=== PATIENT | male | born 1985 | race Caucasian/White ===

== ENCOUNTER 2016-10-18 15:14 | Observation (INO) | payer OTHER ==
[2016-10-18] MEDS ORDERED: BENADRYL 50 MG/ML IV ONE (15:24)
[2016-10-18] MEDS ORDERED: Sodium Chloride 0.9% 1000 ML 1,000 ML IV STA (15:24)
[2016-10-18] MEDS ORDERED: Adacel Vial IM ONE ×2 (15:29→15:36)
[2016-10-18] MEDS ORDERED: BENADRYL 50 MG/ML ONE (15:33)
[2016-10-18] MEDS ORDERED: Sodium Chloride 0.9% 1000 ML 1,000 ML ONE (15:33)
[2016-10-18] MEDS ORDERED: XYLOCAINE 1%/Epi 1:100000 MDV 20 ML IJ ONE (15:34)
[2016-10-18 15:35] LABS: VBG BASE EXCESS 1.6 (-2.0-2.0); VBG CARBOXYHEMOGLOBIN 8.6 % T HGB (0.0-6.9); VBG HCO3- 27.2 meq/L (22-28); VBG HEMOGLOBIN 16.8; VBG POTASSIUM 3.8 (3.5-5.1); VBG pH 7.39 (7.32-7.42)
[2016-10-18 15:37] LABS: BASOPHIL % 0.5 % (0.0-0.4); Eosinophil % 2.9 % (0.00-5.0); Granulocytes % 42.8 % (36.0-66.0); Lymphocytes % 34.3 % (24.0-44.0); Mean Cell Volume 97.4 fl (78-100); Mean Corpuscular Hemoglobin 34.1 pg (26-32); Mean Platelet Volume 10.4 fl (6-9.5); Monocytes % 19.5 % (0.0-12.0); Platelet Count 203 K/mm3 (150-450); Red Blood Count 4.95 M/mm3 (4.1-5.6); Red Cell Distribution Width 12.4 % (11.5-14.0); White Blood Count 7.6 K/mm3 (4.0-10.5)
[2016-10-18] MEDS ORDERED: XYLOCAINE 1%/Epi 1:100000 MDV 20 ML ONE (15:39)
--- NOTE | 2016-10-18 15:42 | ERPHSYRPT ---
- History of Present Illness Time Seen by Provider: 10/18/16 15:24 Source: patient, other (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 He went to [facility] today for sore throat. He had negative strep test. Because his kids had positive strep he was given bicillin shot. No problems. While standing at the desk waiting on a work slip he fell over backwards. Struck head on hard surface. Never fully unconscious. No seizure noted. He did not remember the events and has some amnesia. He was shaking. He has some neck pain. He has a wound on the back of the head. He is unsure of last tetanus vaccine. No vomiting. Timing/Duration: today Severity: moderate Allergies/Adverse Reactions: No Known Drug Allergies Allergy (Verified 10/18/16 15:30) Home Medications: No Home Meds 1 [facility] UD 01/21/15 [History] Hx Tetanus, Diphtheria Vaccination/Date Given: Yes Hx Influenza Vaccination/Date Given: No Hx Pneumococcal Vaccination/Date Given: No Immunizations Up to Date: Yes - Review of Systems Constitutional: No Fever, No Chills Eyes: No Symptoms Ears, Nose, & Throat: Throat Pain Respiratory: No Cough, No Dyspnea Cardiac: Syncope, No Chest Pain, No Edema, No Palpitations Abdominal/Gastrointestinal: No Abdominal Pain, No Nausea, No Vomiting, No Diarrhea Genitourinary Symptoms: No Dysuria Musculoskeletal: Neck Pain, Fall, Injury, No Back Pain Skin: Skin Lesions (laceration) Neurological: No Focal Weakness, No Headache, No Parasthesia All Other Systems: Reviewed and Negative - Past Medical History Pertinent Past Medical History: No Neurological History: No Pertinent History ENT History: No Pertinent History Cardiac History: No Pertinent History Respiratory History: No Pertinent History Endocrine Medical History: No Pertinent History Musculoskeletal History: Degenerative Disk Disease GI Medical History: No Pertinent History, Hernia History: No Pertinent History Psycho-Social History: Depression Male Reproductive Disorders: No Pertinent History - Past Surgical History Past Surgical History: Yes Neuro Surgical History: No Pertinent History Cardiac: No Pertinent History Respiratory: No Pertinent History Gastrointestinal: Appendectomy, Hernia Repair Genitourinary: No Pertinent History Musculoskeletal: No Pertinent History Male Surgical History: No Pertinent History Other Surgical History: TONSILECTOMY - Social History Smoking Status: Current every day smoker How long have you smoked: 10 Exposure to second hand smoke: Yes Alcohol Use: Socially Drug Use: none Patient Lives Alone: No Significant Family History: no pertinent family hx - Nursing Vital Signs Nursing Vital Signs: Initial Vital Signs Temperature 99.9 F Temperature Source Oral Pulse Rate 90 Respiratory Rate 22 Blood Pressure [] 125/72 Pain Intensity 4 - Physical Exam General Appearance: alert Eye Exam: PERRL/EOMI Ears, Nose, Throat Exam: normal ENT inspection, moist mucous membranes Neck Exam: normal inspection, midline tenderness (so collar applied) Respiratory Exam: normal breath sounds, lungs clear, No respiratory distress Cardiovascular Exam: regular rate/rhythm, No murmur Gastrointestinal/Abdomen Exam: soft, No tenderness, No distention Male Genitalia Exam: normal genitalia Back Exam: normal inspection, No vertebral tenderness Extremity Exam: normal inspection, normal range of motion Neurologic Exam: alert, cooperative, sensation nml, other (amnestic to events and some memory loss with repeated questions), No motor deficits Skin Exam: warm, dry, laceration (posterior scalp) SpO2 Interpretation: normal SpO2: 100 Oxygen Delivery: Room Air Procedures - Laceration/Wound Repair scalp Wound Length (cm): 5 Wound's Depth, Shape: irregular, stellate Wound Explored: no foreign body noted Irrigated: Yes Hibiclens Prep: Yes Anesthesia: local, 1% lidocaine w/ Epi Volume Anesthetic (ccs): 5 Wound Repaired With: Thania (#8) - Course Nursing assessment & vital signs reviewed: Yes EKG Interpreted by Me: RATE (90), Sinus Rhythm, NORMAL AXIS, NORMAL INTERVALS ( QTc 414), NORMAL QRS, NORMAL ST-T - Radiology Ultrasound Exam head/cervical Ultrasound: tele radiology report, negative Ordered Tests: Active Orders 24 hr Category Date Time Status Accucheck STAT Care 10/18/16 15:28 Active Grinder Watch Parts STAT Care 10/18/16 15:25 Active Cervical Collar Application STAT Care 10/18/16 18:17 Active Clean Catch Urine Specimen STAT Care 10/18/16 15:24 Active EKG-ER Only STAT Care 10/18/16 15:24 Active IV Insertion STAT Care 10/18/16 15:24 Active NPO (ED) STAT Care 10/18/16 15:24 Active Wound Care STAT Care 10/18/16 15:34 Active CERVICAL SPINE WO CONTRAST [CT] Stat Exams 10/18/16 15:26 Completed HEAD WITHOUT CONTRAST [CT] Stat Exams 10/18/16 15:26 Completed CBC W DIFF Stat Lab 10/18/16 15:25 Completed CMP Stat Lab 10/18/16 15:25 Completed Ethyl Alcohol,Urine Stat Lab 10/18/16 17:40 Completed UA Stat Lab 10/18/16 17:40 Completed Urine Triage Profile Stat Lab 10/18/16 17:40 Completed VENOUS BLOOD GAS Urgent Lab 10/18/16 15:32 Completed Medication Summary Discontinued Medications Generic Name Dose Route Start Last Admin Trade Name Freq PRN Reason Stop Dose Admin Diphenhydramine HCl 25 mg 10/18/16 15:24 10/18/16 15:37 Benadryl 50 Mg/Ml IV 10/18/16 15:25 25 mg STAT ONE Administration Diphenhydramine HCl Confirm 10/18/16 15:33 Benadryl 50 Mg/Ml Administered 10/18/16 15:34 Dose 50 mg .ROUTE .STK-MED ONE Diphtheria/Tetanus/Acell Pertussis 0.5 ml 10/18/16 15:29 10/18/16 15:37 Adacel Vial IM 10/18/16 15:30 0.5 ml .ONCE ONE Administration Diphtheria/Tetanus/Acell Pertussis Confirm 10/18/16 15:36 Adacel Vial Administered 10/18/16 15:37 Dose 0.5 ml IM .STK-MED ONE Sodium Chloride 1,000 mls @ 999 mls/hr 10/18/16 15:24 10/18/16 15:37 Sodium Chloride 0.9% 1000 Ml IV 10/18/16 16:24 999 mls/hr .Q1H1M STA Administration Sodium Chloride Confirm 10/18/16 15:33 Sodium Chloride 0.9% 1000 Ml Administered 10/18/16 15:34 Dose 1,000 mls @ ud .ROUTE .STK-MED ONE Lidocaine/Epinephrine 5 ml 10/18/16 15:34 02/21/17 15:40 Xylocaine 1%/Epi 1:[id number] Mdv 20 Ml IJ 10/18/16 15:35 5 ml STAT ONE Administration Lidocaine/Epinephrine Confirm 10/18/16 15:39 Xylocaine 1%/Epi 1:907059 Mdv 20 Ml Administered 10/18/16 15:40 Dose 1 ml .ROUTE .STK-MED ONE Lab/Rad Data: Laboratory Result Diagrams 10/18/16 15:25 10/18/16 15:25 Laboratory Results 10/18/16 10/18/16 10/18/16 Range/Units 17:40 17:40 17:40 WBC (4.0-10.5) K/mm3 RBC (4.1-5.6) M/mm3 Hgb (12.5-18.0) gm/dl Hct (42-50) % MCV (78-100) fl MCH (26-32) pg MCHC (32-36) g/dl RDW (11.5-14.0) % Plt Count (150-450) K/mm3 MPV (6-9.5) fl Gran % (36.0-66.0) % Lymphocytes % (24.0-44.0) % Monocytes % (0.0-12.0) % Eosinophils % (0.00-5.0) % Basophils % (0.0-0.4) % Basophils # (0-0.4) VBG pH (7.32-7.42) VBG pCO2 at Pat Temp (42-55) mm/Hg VBG pO2 at Pat Temp (25-40) mm/Hg VBG HCO3 (22-28) meq/L VBG O2 Sat (Aldo) (95-100) VBG Base Excess (-2.0-2.0) VBG Hemoglobin VBG Carboxyhemoglobin (0.0-6.9) % T HGB POC Potassium (3.5-5.1) Sodium (136-145) mEq/L Potassium (3.5-5.1) mEq/L Chloride (98-107) mEq/L Carbon Dioxide (21-32) mEq/L Anion Gap (5-15) MEQ/L BUN (9-20) mg/dL Creatinine (0.55-1.30) mg/dl Estimated GFR ML/MIN Glucose (70-110) MG/DL Calcium (8.5-10.1) mg/dL Total Bilirubin (0.2-1.0) mg/dL AST (15-37) U/L ALT (12-78) U/L Alkaline Phosphatase (46-116) U/L Serum Total Protein (6.4-8.2) gm/dL Albumin (3.4-5.0) g/dL Ur Collection Type CCMS Urine Color YELLOW (YELLOW) Urine Appearance CLEAR (CLEAR) Urine pH 6.0 6.0 (5-6) Ur Specific [place] 1.025 (1.005-1.025) Urine Protein NEGATIVE (Negative) Urine Glucose (UA) NEGATIVE (NEGATIVE) mg/dL Urine Ketones NEGATIVE (NEGATIVE) Urine Nitrite NEGATIVE (NEGATIVE) Urine Bilirubin NEGATIVE (NEGATIVE) Urine Urobilinogen 1 (0-1) mg/dL Urine WBC (Auto) NEGATIVE (NEGATIVE) Urine RBC (Auto) NEGATIVE (0-5) Ronaldo/ul Urine Opiates Level NEG. (NEGATIVE) Ur Methadone NEG. (NEGATIVE) Urine Barbiturates NEG. (NEGATIVE) Ur Phencyclidine (PCP) NEG. (NEGATIVE) Urine Amphetamine NEG. (NEGATIVE) U Benzodiazepine Level NEG. (NEGATIVE) Urine Cocaine NEG. (NEGATIVE) Urine Marijuana (THC) NEG. (NEGATIVE) Urine Ethyl Alcohol 1 (0.00-20) mg/dl Specimen Received 10-18-16 1750 10/18/16 10/18/16 10/18/16 Range/Units 15:32 15:25 15:25 WBC 7.6 (4.0-10.5) K/mm3 RBC 4.95 (4.1-5.6) M/mm3 Hgb 16.9 (12.5-18.0) gm/dl Hct 48.2 (42-50) % MCV 97.4 (78-100) fl MCH 34.1 H (26-32) pg MCHC 35.1 (32-36) g/dl RDW 12.4 (11.5-14.0) % Plt Count 203 (150-450) K/mm3 MPV 10.4 H (6-9.5) fl Gran % 42.8 (36.0-66.0) % Lymphocytes % 34.3 (24.0-44.0) % Monocytes % 19.5 H (0.0-12.0) % Eosinophils % 2.9 (0.00-5.0) % Basophils % 0.5 (0.0-0.4) % Basophils # 0.04 (0-0.4) VBG pH 7.39 (7.32-7.42) VBG pCO2 at Pat Temp 45 (42-55) mm/Hg VBG pO2 at Pat Temp 15 L (25-40) mm/Hg VBG HCO3 27.2 (22-28) meq/L VBG O2 Sat (Aldo) 27.0 L (95-100) VBG Base Excess 1.6 (-2.0-2.0) VBG Hemoglobin 16.8 VBG Carboxyhemoglobin 8.6 H* (0.0-6.9) % T HGB POC Potassium 3.8 (3.5-5.1) Sodium 139 (136-145) mEq/L Potassium 3.7 (3.5-5.1) mEq/L Chloride 101 (98-107) mEq/L Carbon Dioxide 25.7 (21-32) mEq/L Anion Gap 15.7 H (5-15) MEQ/L BUN 12 (9-20) mg/dL Creatinine 1.04 (0.55-1.30) mg/dl Estimated GFR > 60 ML/MIN Glucose 109 (70-110) MG/DL Calcium 9.2 (8.5-10.1) mg/dL Total Bilirubin 0.4 (0.2-1.0) mg/dL AST 16 (15-37) U/L ALT 19 (12-78) U/L Alkaline Phosphatase 72 (46-116) U/L Serum Total Protein 7.7 (6.4-8.2) gm/dL Albumin 4.6 (3.4-5.0) g/dL Ur Collection Type Urine Color (YELLOW) Urine Appearance (CLEAR) Urine pH (5-6) Ur Specific [place] (1.005-1.025) Urine Protein (Negative) Urine Glucose (UA) (NEGATIVE) mg/dL Urine Ketones (NEGATIVE) Urine Nitrite (NEGATIVE) Urine Bilirubin (NEGATIVE) Urine Urobilinogen (0-1) mg/dL Urine WBC (Auto) (NEGATIVE) Urine RBC (Auto) (0-5) Ronaldo/ul Urine Opiates Level (NEGATIVE) Ur Methadone (NEGATIVE) Urine Barbiturates (NEGATIVE) Ur Phencyclidine (PCP) (NEGATIVE) Urine Amphetamine (NEGATIVE) U Benzodiazepine Level (NEGATIVE) Urine Cocaine (NEGATIVE) Urine Marijuana (THC) (NEGATIVE) Urine Ethyl Alcohol (0.00-20) mg/dl Specimen Received - Progress Progress Note: 10/18/16 15:41 Pt arrived with diffuse shaking and hyperventilation. He has calmed before meds and IVF. Will get CT head and cervical. No redness, hives, v/d or anything to suggest acute allergic reaction. 10/18/16 17:23 Laceration cleansed and stapled. He has repeated questions. He texted who spoke to nurse. He appears concussed. No sign of allergic reaction to injection. No urine produced as yet. Likely will need observation for concussion. 10/18/16 18:18 Pt had urine. He is alert. Still confused about events. here. He complains of pain in arm but no specific pain. Mild neck pain so will leave cervical collar in place. [place] to Dr Bryan and will place in obs for concussion observation. Pt has no sign of acute extremity injury nor focal neurological deficit. Counseled pt/family regarding: lab results, diagnosis, need for follow-up, rad results - Departure Time of Disposition: 18:19 Departure Disposition: Observation Clinical Impression: Syncope, Concussion, Scalp laceration, Hx of pharyngitis Condition: Stable Critical Care Time: No Referrals: MAKSIM BRYAN [Primary Care Provider] -
--- NOTE | 2016-10-18 15:59 | XRAY ---
Indication: Pain following fall. Syncopal episode. Multiple contiguous axial images obtained through the cervical spine. Sagittal and coronal reformatted images obtained. Comparison: None Axial images negative for acute fracture, suspicious bony lesions, or spinal canal stenosis. Minimal C2-C3 endplate spurring. Sagittal and coronal reformatted images demonstrate normal alignment. Disc spaces maintained. No acute fracture, subluxation, or jumped facet. Normal-appearing craniocervical junction. Visualized noncontrasted soft tissues including base of the brain and lung apices are unremarkable. Impression: 1. Negative for acute fracture/subluxation. 2. Minimal C2-C3 degenerative changes. CTDI 84.12
--- NOTE | 2016-10-18 16:01 | XRAY ---
Indication: Pain following fall. Syncopal episode. Multiple contiguous axial images obtained through the head. Comparison: November 01, 2012. Again normal appearing brain parenchyma, ventricles, and bony calvarium. New tiny fluid leveling in the right maxillary sinus and minimal mucosal thickening of both ethmoid sinuses. Mastoid air cells are clear. Impression: 1. Again no acute intracranial abnormalities. 2. New paranasal sinus disease. CTDI 68.32
[2016-10-18 16:07] LABS: ALBUMIN 4.6 g/dL (3.4-5.0); ALKALINE PHOSPHATASE 72 U/L (46-116); ANION GAP 15.7 MEQ/L (5-15); BILIRUBIN,TOTAL 0.4 mg/dL (0.2-1.0); BLOOD UREA NITROGEN 12 mg/dL (9-20); CHLORIDE 101 mEq/L (98-107); Carbon Dioxide 25.7 mEq/L (21-32); Glucose 109 MG/DL (70-110); Potassium 3.7 mEq/L (3.5-5.1); SGOT/AST 16 U/L (15-37); SGPT/ALT 19 U/L (12-78); SODIUM 139 mEq/L (136-145); Total Protein 7.7 gm/dL (6.4-8.2)
[2016-10-18 17:50] LABS: COMPLETE URINE MICROSCOPIC? NO; Collection Type CCMS
[2016-10-18] MEDS: Dextrose 5%-Lr IV Solution 1000 ML 1,000 ML IV SCH (19:49)
[2016-10-18] MEDS: TYLENOL 325 MG PO PRN (20:28)
[2016-10-19] MEDS: TYLENOL 325 MG PO PRN ×2 (03:50→10:10)
[2016-10-19] MEDS: Dextrose 5%-Lr IV Solution 1000 ML 1,000 ML IV SCH (05:57)
[2016-10-19 07:24] VITALS: O2SAT 97
--- NOTE | 2016-10-19 07:42 | PCM.DCORD ---
- Discharge Discharge Date: 10/19/16 Prescriptions: No Action No Home Meds 1 [facility] UD Follow up with: MAKSIM OAKES [Primary Care Provider] -
--- NOTE | 2016-10-19 08:37 | SSS ---
DISCHARGE DIAGNOSES: 1) CONCUSSION. 2) LACERATION TO THE SCALP OCCIPITAL AREA. 3) SYNCOPAL EPISODE. 4) PHARYNGITIS. HISTORY: The patient is a 31 year-old white male patient who presented himself to the [facility]. He was diagnosed with Strep pharyngitis and given penicillin injection. Shortly afterwards the patient had a syncopal episode striking the back of his head and splitting it open. The patient was quite lethargic afterwards. He was taken to the emergency room where gibson were applied. He had a work up including CT scan of the head. He was placed in the hospital for observation overnight for closed head injury. By the next morning the patient was awake, alert and feeling somewhat in a daze but otherwise answering questions appropriately. PAST MEDICAL/SURGICAL HISTORY: Significant only for tonsillectomy. SOCIAL HISTORY: He is a smoker. MEDICATIONS: He does not take any medication on a regular basis. ALLERGIES: NKDA. PHYSICAL EXAMINATION: Revealed a well nourished, well developed, 31 year-old white male patient in no obvious distress. VITAL SIGNS: His temperature on admission was 99.9F oral, pulse 90, respiratory rate 22, blood pressure 125/72. HEENT: Laceration with gibson over the occipital area. Pupils equal round reactive to light. Extraocular movements intact. Oropharynx is dry. NECK: Supple without lymphadenopathy, thyromegaly or JVD. CHEST: Clear to auscultation with good air movement bilaterally. HEART: Regular rate and rhythm without murmurs, rubs or gallops. ABDOMEN: Soft, nontender, nondistended without hepatosplenomegaly or masses. EXTREMITIES: Without clubbing, cyanosis or edema. NEUROLOGIC: The patient is awake, alert and oriented x3. LAB DATA AND TESTS: CT scan of the head which showed no acute intracranial abnormalities. He also had a CT scan of the neck negative for acute fracture or subluxation. His labs otherwise showed a normal arterial venous blood gas. His white blood cell count was 7,600. His hemoglobin was 16.9, PLT 203,000. His metabolic panel was entirely normal. Urine drug screen was negative. ETOH was negative. UA was essentially normal. ASSESSMENT: A patient with head injury now having essentially recovered although he does have a concussion from the episode and a laceration. We have asked him to follow up in the office in one week for removal of the gibson. He is to avoid heavy machinery and working for the next 48 hours. 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
[2016-10-19 12:16] VITALS: BP 108/53; PULSE 76
== END 2016-10-19 13:05 | disposition home or self-care (01) ==
LOC: ED 15:14 → MED SURG 18:51
PROVIDERS: ADMIT Family Medicine; ATTEND Family Medicine
DX: S06.0X0A Concussion without loss of consciousness, initial encounter (principal); W18.39XA Other fall on same level, initial encounter; Y92.531 Health care provider office as the place of occurrence of the external cause; S01.01XA Laceration without foreign body of scalp, initial encounter; R55 Syncope and collapse; J02.0 Streptococcal pharyngitis; Z72.0 Tobacco use
CPT/HCPCS: 36000; 36415; 70450; 72125; 80053; 80307; 80320; 81002; 82805; 82962; 83986; 85025; 90471; 90715; 93005; 93041; 93268; 96360; 96374; 99284; 99285; G0378; J1200; L0172

== ENCOUNTER 2018-05-06 18:27 | Emergency (ER) | payer SELFPAY | END 2018-05-06 19:26 | disposition left against medical advice (07) | LOC: ED 18:27 | DX: Z53.21 Procedure and treatment not carried out due to patient leaving prior to being seen by health care provider (principal) | CPT/HCPCS: 99281 ==

== ENCOUNTER 2020-01-21 04:09 | Emergency (ER) | payer OTHER ==
[2020-01-21] MEDS ORDERED: Pepcid 20 MG VIAL IV ONE ×2 (04:45→04:57)
--- NOTE | 2020-01-21 05:10 | ERPHSYRPT ---
- History of Present Illness Time Seen by Provider: 01/21/20 04:26 Historian: patient Exam Limitations: no limitations Patient Subjective Stated Complaint: pt states for the past 2 weeks he has been having lt side chest and rib pain. states pain sometimes radiates around to back. Triage Nursing Assessment: pt alert and oriented, answers questions approp. pt ambulatory with steady gait noted. skin pink warm and dry. respirations nonlabored with lungs cta. peripheral pulses intact. cap refill wnl. Physician History: 34 years old generally healthy male presented in the ER with chief complaint of left upper quadrant pain for the last 2 weeks intermittently, dull aching pressure to fullness with radiation/wrapping around the side to the back, mild to moderate intensity without any significant aggravating or relieving factors, not associated with any nausea vomiting or diarrhea. Patient also complained this pain goes in the chest as well on the left side. Patient reports earlier it started while he was resting and is improved now. Timing/Duration: week(s) (2), intermittent, improved Activities at Onset: rest Quality: dullness, fullness Abdominal Pain Onset Location: [facility] Pain Radiation: back Severity of Pain-Max: moderate Severity of Pain-Current: mild Modifying Factors: Improves With: nothing Associated Symptoms: denies symptoms Previous symptoms: same symptoms as today Allergies/Adverse Reactions: No Known Drug Allergies Allergy (Verified 01/21/20 04:32) Home Medications: No Home Meds [No Home Meds] 1 [facility] 01/21/15 [History] Hx Tetanus, Diphtheria Vaccination/Date Given: Yes Hx Influenza Vaccination/Date Given: No Hx Pneumococcal Vaccination/Date Given: No Immunizations Up to Date: Yes Travel Risk - International Travel Have you traveled outside of the country in past 3 weeks: No Have you or anyone close to you been diagnosed with or: No Do your reside in a community with a known COVID-19 case?: Yes If Yes where:: [facility] - Coronavirus Screening Has patient experienced Coronavirus symptoms: No - Review of Systems Constitutional: No Symptoms Eyes: No Symptoms Ears, Nose, & Throat: No Symptoms Respiratory: No Symptoms Cardiac: No Symptoms Abdominal/Gastrointestinal: Abdominal Pain Genitourinary Symptoms: No Symptoms Musculoskeletal: No Symptoms Skin: No Symptoms Neurological: No Symptoms Psychological: No Symptoms Endocrine: No Symptoms Hematologic/Lymphatic: No Symptoms Immunological/Allergic: No Symptoms - Past Medical History Pertinent Past Medical History: No Neurological History: No Pertinent History ENT History: No Pertinent History Cardiac History: No Pertinent History Respiratory History: No Pertinent History Endocrine Medical History: No Pertinent History Musculoskeletal History: Degenerative Disk Disease GI Medical History: No Pertinent History, Hernia History: No Pertinent History Psycho-Social History: Depression Male Reproductive Disorders: No Pertinent History - Past Surgical History Past Surgical History: Yes Neuro Surgical History: No Pertinent History Cardiac: No Pertinent History Respiratory: No Pertinent History Gastrointestinal: Appendectomy, Hernia Repair Genitourinary: No Pertinent History Musculoskeletal: No Pertinent History Male Surgical History: No Pertinent History Other Surgical History: TONSILECTOMY - Social History Smoking Status: Current every day smoker How long have you smoked: 16 years Exposure to second hand smoke: Yes Alcohol Use: Socially Drug Use: none Patient Lives Alone: No Significant Family History: no pertinent family hx - Nursing Vital Signs Nursing Vital Signs: Initial Vital Signs Temperature 97.2 F 01/21/20 04:11 Pulse Rate 83 01/21/20 04:11 Respiratory Rate 16 01/21/20 04:11 Blood Pressure 135/84 01/21/20 04:11 O2 Sat by Pulse Oximetry 100 01/21/20 04:11 Pain Scale Pain Intensity 0 - Physical Exam General Appearance: no apparent distress, alert Eye Exam: PERRL/EOMI, eyes nml inspection Ears, Nose, Throat Exam: normal ENT inspection, pharynx normal Neck Exam: normal inspection, supple, full range of motion Respiratory Exam: normal breath sounds, lungs clear Cardiovascular Exam: regular rate/rhythm, normal heart sounds Gastrointestinal/Abdomen Exam: soft, tenderness (Minimal tenderness in left upper quadrant to palpation), No guarding Back Exam: normal inspection, normal range of motion Extremity Exam: normal inspection, normal range of motion, pelvis stable Neurologic Exam: alert, oriented x 3, cooperative Skin Exam: normal color SpO2 Interpretation: normal SpO2: 100 O2 Delivery: Room Air - Course EKG Interpreted by Me: RATE, NORMAL AXIS, NORMAL INTERVALS, NORMAL QRS, Other ( atrial ectopic rhythm) Ordered Tests: Medication Summary Discontinued Medications Generic Name Dose Route Start Last Admin Trade Name Freq PRN Reason Stop Dose Admin Famotidine 20 mg 01/21/20 04:45 01/21/20 04:59 Pepcid 20 Mg Vial IV 01/21/20 04:46 20 mg STAT ONE Administration Famotidine Confirm 01/21/20 04:57 Pepcid 20 Mg Vial Administered 01/21/20 04:58 Dose 20 mg IV .STK-MED ONE Lab/Rad Data: Laboratory Result Diagrams 01/21/20 05:09 01/21/20 05:09 Laboratory Results 01/21/20 01/21/20 01/21/20 Range/Units 05:48 05:09 05:09 WBC 8.3 (4.0-10.5) K/mm3 RBC 4.58 (4.1-5.6) M/mm3 Hgb 15.9 (12.5-18.0) gm/dl Hct 45.8 (42-50) % MCV 100.0 (78-100) fl MCH 34.7 H (26-32) pg MCHC 34.7 (32-36) g/dl RDW 12.3 (11.5-14.0) % Plt Count 196 (150-450) K/mm3 MPV 10.6 (7.5-11.0) fl Gran % 39.4 (36.0-66.0) % Eos # (Auto) 0.61 H (0-0.5) Absolute Lymphs (auto) 3.38 (1.0-4.6) Absolute Monos (auto) 0.98 (0.0-1.3) Lymphocytes % 40.9 (24.0-44.0) % Monocytes % 11.9 (0.0-12.0) % Eosinophils % 7.4 H (0.00-5.0) % Basophils % 0.4 (0.0-0.4) % Absolute Granulocytes 3.27 (1.4-6.9) Basophils # 0.03 (0-0.4) Sodium 137 (137-145) mmol/L Potassium 3.8 (3.5-5.1) mmol/L Chloride 104 (98-107) mmol/L Carbon Dioxide 27 (22-30) mmol/L Anion Gap 10.3 (5-15) MEQ/L BUN 15 (9-20) mg/dL Creatinine 0.78 (0.66-1.25) mg/dL Estimated GFR > 60.0 ML/MIN Glucose 112 H (74-106) mg/dL Calcium 8.9 (8.4-10.2) mg/dL Total Bilirubin 0.40 (0.2-1.3) mg/dL AST 22 (17-59) U/L ALT 16 (0-50) U/L Alkaline Phosphatase 69 (38-126) U/L Troponin I (0.000-0.034) ng/mL Serum Total Protein 7.0 (6.3-8.2) g/dL Albumin 4.2 (3.5-5.0) g/dL Lipase 91 (23-300) U/L Urine Color YELLOW (YELLOW) Urine Appearance CLEAR (CLEAR) Urine pH 6.0 (5-6) Ur Specific [place] 1.024 (1.005-1.025) Urine Protein NEGATIVE (Negative) Urine Ketones NEGATIVE (NEGATIVE) Urine Blood NEGATIVE (0-5) Ronaldo/ul Urine Nitrite NEGATIVE (NEGATIVE) Urine Bilirubin NEGATIVE (NEGATIVE) Urine Urobilinogen 4 (0-1) mg/dL Ur Leukocyte Esterase NEGATIVE (NEGATIVE) Urine WBC (Auto) 0-2 (0-5) /HPF Urine RBC (Auto) NONE (0-2) /HPF U Epithel Cells (Auto) NONE (FEW) /HPF Urine Bacteria (Auto) NONE (NEGATIVE) /HPF Urine Mucus (Auto) SLIGHT (NEGATIVE) /HPF Urine Culture Reflexed NO (NO) Urine Glucose NEGATIVE (NEGATIVE) mg/dL 01/21/20 Range/Units 05:09 WBC (4.0-10.5) K/mm3 RBC (4.1-5.6) M/mm3 Hgb (12.5-18.0) gm/dl Hct (42-50) % MCV (78-100) fl MCH (26-32) pg MCHC (32-36) g/dl RDW (11.5-14.0) % Plt Count (150-450) K/mm3 MPV (7.5-11.0) fl Gran % (36.0-66.0) % Eos # (Auto) (0-0.5) Absolute Lymphs (auto) (1.0-4.6) Absolute Monos (auto) (0.0-1.3) Lymphocytes % (24.0-44.0) % Monocytes % (0.0-12.0) % Eosinophils % (0.00-5.0) % Basophils % (0.0-0.4) % Absolute Granulocytes (1.4-6.9) Basophils # (0-0.4) Sodium (137-145) mmol/L Potassium (3.5-5.1) mmol/L Chloride (98-107) mmol/L Carbon Dioxide (22-30) mmol/L Anion Gap (5-15) MEQ/L BUN (9-20) mg/dL Creatinine (0.66-1.25) mg/dL Estimated GFR ML/MIN Glucose (74-106) mg/dL Calcium (8.4-10.2) mg/dL Total Bilirubin (0.2-1.3) mg/dL AST (17-59) U/L ALT (0-50) U/L Alkaline Phosphatase (38-126) U/L Troponin I < 0.012 (0.000-0.034) ng/mL Serum Total Protein (6.3-8.2) g/dL Albumin (3.5-5.0) g/dL Lipase (23-300) U/L Urine Color (YELLOW) Urine Appearance (CLEAR) Urine pH (5-6) Ur Specific [place] (1.005-1.025) Urine Protein (Negative) Urine Ketones (NEGATIVE) Urine Blood (0-5) Ronaldo/ul Urine Nitrite (NEGATIVE) Urine Bilirubin (NEGATIVE) Urine Urobilinogen (0-1) mg/dL Ur Leukocyte Esterase (NEGATIVE) Urine WBC (Auto) (0-5) /HPF Urine RBC (Auto) (0-2) /HPF U Epithel Cells (Auto) (FEW) /HPF Urine Bacteria (Auto) (NEGATIVE) /HPF Urine Mucus (Auto) (NEGATIVE) /HPF Urine Culture Reflexed (NO) Urine Glucose (NEGATIVE) mg/dL - Progress Progress: improved, re-examined Progress Note: 01/21/20 06:29 34Years old is evaluated for left upper quadrant pain. His pain is improved on presentation in the ER. I have obtained EKG which showed atrial ectopic rhythm but no acute ischemic changes. Negative troponins. Grossly unremarkable chemistries including lipase. I have obtained acute abdomen series which showed some element of constipation but no other acute findings. Patient remained asymptomatic. I do not think patient needs any further work-up and is being discharged with outpatient follow-up with primary care and cardiology for his atrial ectopy. He is advised cut down on smoking. Counseled pt/family regarding: lab results, diagnosis, need for follow-up, rad results, smoking cessation - Departure Departure Disposition: Home Clinical Impression: Ectopic atrial rhythm Constipation Qualifiers: Constipation type: other constipation type Qualified Code(s): K59.09 - Other constipation Condition: Stable Critical Care Time: No Referrals: MAKSIM OAKES [Primary Care Provider] - (1-2 days for re evaluation and may need holter monitoring ) LARISA VALENZUEAL [ACTIVE STAFF] - (1-2 days for re evaluation and may need holter monitoring ) Instructions: Atypical Chest Pain, Angina (DC) Additional Instructions: Cut down on smoking. Follow-up with primary care and cardiology for reevaluation and may need Holter monitoring. Return to ER for any worsening. Take daily MiraLAX and stool softener. Forms: Work/School Release Form
[2020-01-21 05:13] LABS: Absolute Neutrophil Ct (ANC) 3.27 (1.4-6.9); BASOPHIL % 0.4 % (0.0-0.4); Basophil (Absolute #) 0.03 (0-0.4); Eosinophil % 7.4 % (0.00-5.0); Eosinophil (Absolute #) 0.61 (0-0.5); Hematocrit 45.8 % (42-50); Hemoglobin 15.9 gm/dl (12.5-18.0); Lymphocyte (Absolute #) 3.38 (1.0-4.6); Lymphocytes % 40.9 % (24.0-44.0); Mean Corpuscular Hemoglobin 34.7 pg (26-32); Mean Corpuscular Hgb Concent. 34.7 g/dl (32-36); Mean Platelet Volume 10.6 fl (7.5-11.0); Monocyte (Absolute #) 0.98 (0.0-1.3); Monocytes % 11.9 % (0.0-12.0); Neutrophil % 39.4 % (36.0-66.0); Platelet Count 196 K/mm3 (150-450); Red Blood Count 4.58 M/mm3 (4.1-5.6); Red Cell Distribution Width 12.3 % (11.5-14.0); White Blood Count 8.3 K/mm3 (4.0-10.5)
[2020-01-21 05:29] LABS: ALBUMIN 4.2 g/dL (3.5-5.0); ALKALINE PHOSPHATASE 69 U/L (38-126); ANION GAP 10.3 MEQ/L (5-15); BLOOD UREA NITROGEN 15 mg/dL (9-20); CHLORIDE 104 mmol/L (98-107); Calcium 8.9 mg/dL (8.4-10.2); Carbon Dioxide 27 mmol/L (22-30); Creatinine 1 0.78 mg/dL (0.66-1.25); Glucose 112 mg/dL (74-106); LIPASE 91 U/L (23-300); Potassium 3.8 mmol/L (3.5-5.1); SGOT/AST 22 U/L (17-59); SGPT/ALT 16 U/L (0-50); SODIUM 137 mmol/L (137-145)
[2020-01-21 05:53] LABS: Appearance CLEAR (CLEAR); Bilirubin NEGATIVE (NEGATIVE); Blood NEGATIVE Ery/ul (0-5); Glucose NEGATIVE (NEGATIVE); Ketones NEGATIVE (NEGATIVE); Leukocyte Esterase NEGATIVE (NEGATIVE); Mucus SLIGHT /HPF (NEGATIVE); Nitrite NEGATIVE (NEGATIVE); Protein,Urine Dip NEGATIVE (Negative); Specific Gravity 1.024 (1.005-1.025); Urobilinogen 4 mg/dL (0-1); WBC 0-2 /HPF (0-5)
[2020-01-21 06:46] VITALS: BP 122/85; PULSE 75
--- NOTE | 2020-01-21 09:46 | XRAY ---
Indication: Left upper quadrant pain. Comparison: None 2 view abdomen nonacute and nonobstructed with mild/moderate fecal debris predominantly in the ascending and transverse colon. Solid organs and osseous structures unremarkable. Single PA chest demonstrates normal heart, lungs, and bony thorax with incidental tiny calcified granulomas. Impression: Fecal stasis without obstruction. Nonacute one view chest with evidence for old granulomatous disease.
[2020-01-22 17:57] VITALS: O2SAT 100
== END 2020-01-21 06:44 | disposition home or self-care (01) ==
LOC: ED 04:09
DX: I49.1 Atrial premature depolarization (principal); R10.12 Left upper quadrant pain; K59.00 Constipation, unspecified; Z72.0 Tobacco use
CPT/HCPCS: 36000; 36415; 74022; 80053; 81001; 83690; 84484; 85025; 93005; 96374; 99284

== ENCOUNTER 2021-03-03 14:04 | Day surgery (SDC) | payer OTHER ==
[2021-03-03] MEDS ORDERED: BUPIVACAINE 0.5% VIAL IJ ONE (14:05)
[2021-03-03] MEDS ORDERED: Depo-Medrol 40 MG/ML IM ONE (14:05)
[2021-03-03] MEDS ORDERED: DIPRIVAN 200 MG/20 ML IV ONE (15:00)
[2021-03-03] MEDS ORDERED: Lactated Ringers 1,000 ML IV ONE (15:35)
--- NOTE | 2021-03-03 16:55 | XRAY ---
Indication: Left shoulder and subacromial bursa injections. Intraoperative fluoroscopy provided for 23 seconds. 2 digital spot image submitted for interpretation demonstrates needle tip projecting over the left glenohumeral joint superiorly. Second needle tip subacromial. Small amount of contrast injected for both needle tip placement. Correlate with intraoperative findings/report.
--- NOTE | 2021-03-03 17:01 | XRAY ---
23 seconds of fluoroscopy was used in surgery for a left intra-articular and subachromial bursa shoulder injection.
== END 2021-03-03 15:25 | disposition home or self-care (01) ==
LOC: SDC-PAIN 14:04
PROVIDERS: ATTEND Psychiatry & Neurology Pain Medicine
DX: M19.012 Primary osteoarthritis, left shoulder (principal); M75.52 Bursitis of left shoulder; Z79.899 Other long term (current) drug therapy
CPT/HCPCS: 20610; 73030; 77002; J1030; J2704; Q9966

== ENCOUNTER 2021-04-07 15:59 | Day surgery (SDC) | payer OTHER ==
[2021-04-07] MEDS ORDERED: LIDOCAINE HCL 2% 100 MG/5 ML IJ ONE (16:00)
[2021-04-07] MEDS ORDERED: Lactated Ringers 1,000 ML IV ONE (16:39)
[2021-04-07] MEDS ORDERED: DIPRIVAN 200 MG/20 ML IV ONE (18:00)
--- NOTE | 2021-04-07 21:17 | XRAY ---
Indication: Bilateral L4-S1 MBB. Intraoperative fluoroscopy provided for 13 seconds. Single digital spot images submitted for interpretation demonstrates posterior needle tips projecting over the left left and right L4-S1 nerve roots. Correlate with intraoperative findings/report.
--- NOTE | 2021-04-08 08:49 | XRAY ---
13 seconds fluoroscopy time in surgery for bilateral L4-S1 MBB.
== END 2021-04-07 18:25 | disposition home or self-care (01) ==
LOC: SDC-PAIN 15:59
PROVIDERS: ATTEND Psychiatry & Neurology Pain Medicine
DX: M47.816 Spondylosis without myelopathy or radiculopathy, lumbar region (principal); Z79.899 Other long term (current) drug therapy
CPT/HCPCS: 72020; 77002; J2704

== ENCOUNTER 2021-06-02 15:28 | Day surgery (SDC) | payer OTHER ==
[~2021-06-02 15:28] MED LIST: Lactated Ringers 1,000 ML IV ONE
[2021-06-02] MEDS ORDERED: BUPIVACAINE 0.5% VIAL IJ ONE (15:29)
[2021-06-02] MEDS ORDERED: DIPRIVAN 200 MG/20 ML IV ONE (17:16)
--- NOTE | 2021-06-02 20:35 | XRAY ---
Indication: Bilateral L4-S1 MBB. Intraoperative fluoroscopy provided for 8 seconds. Single digital spot image submitted for interpretation demonstrates posterior needle tips projecting over the expected left and right L4-S1 nerve roots. Correlate with intraoperative findings/report.
--- NOTE | 2021-06-03 08:42 | XRAY ---
8 seconds fluoroscopy time in surgery for bilateral L4-S1 MBB.
== END 2021-06-02 17:40 | disposition home or self-care (01) ==
LOC: SDC-PAIN 15:28
PROVIDERS: ATTEND Psychiatry & Neurology Pain Medicine
DX: M47.816 Spondylosis without myelopathy or radiculopathy, lumbar region (principal); Z79.899 Other long term (current) drug therapy
CPT/HCPCS: 64493; 64494; 72020; 77002; J2704

== ENCOUNTER 2021-06-30 14:33 | Day surgery (SDC) | payer OTHER ==
[2021-06-30] MEDS ORDERED: Xylocaine 1% Vial 30 ML PF IJ ONE (14:34)
[2021-06-30] MEDS ORDERED: BUPIVACAINE 0.5% VIAL IJ ONE (14:34)
[2021-06-30] MEDS ORDERED: Depo-Medrol 40 MG/ML IM ONE (14:34)
[2021-06-30] MEDS ORDERED: Lactated Ringers 1,000 ML IV ONE (16:06)
[2021-06-30] MEDS ORDERED: DIPRIVAN 200 MG/20 ML IV ONE (16:31)
--- NOTE | 2021-06-30 19:51 | XRAY ---
Indication: Left L4-S1 RFA. Intraoperative fluoroscopy provided for 19 seconds. 3 digital spot image submitted for interpretation demonstrates posterior needle tips projecting over the expected left L4-S1 nerve roots. Correlate with intraoperative findings/report.
--- NOTE | 2021-07-01 08:57 | XRAY ---
19 seconds fluoroscopy time in surgery for left L4-S1 RFA.
== END 2021-06-30 17:00 | disposition home or self-care (01) ==
LOC: SDC-PAIN 14:33
PROVIDERS: ATTEND Psychiatry & Neurology Pain Medicine
DX: M47.816 Spondylosis without myelopathy or radiculopathy, lumbar region (principal)
CPT/HCPCS: 64635; 64636; 72100; 77002; J1030; J2001; J2704

== ENCOUNTER 2021-07-07 10:42 | Day surgery (SDC) | payer OTHER ==
[2021-07-07] MEDS ORDERED: Depo-Medrol 40 MG/ML IM ONE (10:43)
[2021-07-07] MEDS ORDERED: Xylocaine 1% Vial 30 ML PF IJ ONE (10:43)
[2021-07-07] MEDS ORDERED: BUPIVACAINE 0.5% VIAL IJ ONE (10:43)
[2021-07-07] MEDS ORDERED: DIPRIVAN 200 MG/20 ML IV ONE (12:44)
--- NOTE | 2021-07-07 13:23 | XRAY ---
21 seconds fluoroscopy time in surgery for right L4-S1 RFA.
--- NOTE | 2021-07-07 13:23 | XRAY ---
Indication: Right L4-S1 RFA. Intraoperative fluoroscopy provided for 21 seconds. 3 digital spot image submitted for interpretation demonstrates posterior needle tips projecting over the expected right L4-S1 nerve roots. Correlate with intraoperative findings/report.
[2021-07-07] MEDS ORDERED: Lactated Ringers 1,000 ML IV ONE (13:25)
== END 2021-07-07 13:15 | disposition home or self-care (01) ==
LOC: SDC-PAIN 10:42
PROVIDERS: ATTEND Psychiatry & Neurology Pain Medicine
DX: M47.816 Spondylosis without myelopathy or radiculopathy, lumbar region (principal)
CPT/HCPCS: 64635; 64636; 72100; 77002; J1030; J2001; J2704

== ENCOUNTER 2021-07-19 23:46 | Emergency (ER) | payer OTHER ==
[2021-07-20 00:03] VITALS: O2SAT 98
[2021-07-20] MEDS ORDERED: Adacel Vial IM ONE (00:22)
--- NOTE | 2021-07-20 00:28 | ERPHSYRPT ---
- History of Present Illness Time Seen by Provider: 07/19/21 23:50 Source: patient Exam Limitations: no limitations Patient Subjective Stated Complaint: Patient states " I dropped a brake caliber on the tip of my right 4th finger and wsn't sure if it needed some stictches." Triage Nursing Assessment: Patient arrived to ED and ambulated back to room without difficulty. Patient A/O times 4. Patient able to follow instructions without difficulty. Patient noted with 1CM laceration to right ring finger. No active bleeding noted. Bruising noted to back of finger. Patient able to bend finger without difficulty. Patient denies any tingling or numbness to finger/hand. + Radial pulse noted to right upper extremity. Edema noted to right ring finger. No eschar or slough noted. Physician History: Patient is a 36-year-old male presents to our ED with pain to the distal tip of his right ring finger. 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 Patient was working on his cars brakes when the brake caliper fell onto his hand. Break caliper the way approximately 10 to 15 pounds. Injury occurred this morning. However patient is just not seeking help. Tetanus is not up-to-date. No other injuries reported. Pain described as an ache that is localized. No radiation. Patient also observed the skin to be retracted back. Patient was concerned that it may need to be's repaired with sutures. Patient is otherwise healthy. He voices no other complaints or concerns at this time. Severity: moderate Modifying Factors: Improves With: movement Associated Symptoms: denies symptoms Allergies/Adverse Reactions: No Known Drug Allergies Allergy (Verified 07/20/21 00:37) Home Medications: No Home Meds [No Home Meds] 1 ea UD 01/21/15 [History] Hx Tetanus, Diphtheria Vaccination/Date Given: No Hx Influenza Vaccination/Date Given: No Hx Pneumococcal Vaccination/Date Given: No Immunizations Up to Date: Yes Travel Risk - International Travel Have you traveled outside of the country in past 3 weeks: No - Coronavirus Screening Are you exhibiting any of the following symptoms?: No Close contact with a COVID-19 positive Pt in past 14-21 Days: No - Vaccine Status Have you recieved a Covid-19 vaccination: No - Review of Systems Constitutional: No Symptoms, No Fever, No Chills Eyes: No Symptoms Ears, Nose, & Throat: No Symptoms Respiratory: No Symptoms, No Cough, No Dyspnea Cardiac: No Symptoms, No Chest Pain, No Edema, No Syncope Abdominal/Gastrointestinal: No Symptoms, No Abdominal Pain, No Nausea, No Vomiting, No Diarrhea Genitourinary Symptoms: No Symptoms, No Dysuria Musculoskeletal: No Symptoms, No Back Pain, No Neck Pain Skin: No Symptoms, No Rash Neurological: No Symptoms, No Dizziness, No Focal Weakness, No Sensory Changes Psychological: No Symptoms Endocrine: No Symptoms Hematologic/Lymphatic: No Symptoms Immunological/Allergic: No Symptoms All Other Systems: Reviewed and Negative - Past Medical History Pertinent Past Medical History: Yes Neurological History: No Pertinent History ENT History: No Pertinent History Cardiac History: No Pertinent History Respiratory History: No Pertinent History Endocrine Medical History: No Pertinent History Musculoskeletal History: No Pertinent History GI Medical History: Hernia History: No Pertinent History Psycho-Social History: Depression Male Reproductive Disorders: No Pertinent History Other Medical History: SX HX: APPENDECTOMY, TONSILLECTOMY, ABDOMINAL HERNIA REPAIR - Past Surgical History Past Surgical History: Yes Neuro Surgical History: No Pertinent History Cardiac: No Pertinent History Respiratory: No Pertinent History Gastrointestinal: Appendectomy, Hernia Repair Genitourinary: No Pertinent History Musculoskeletal: No Pertinent History Male Surgical History: No Pertinent History Other Surgical History: TONSILECTOMY - Social History Smoking Status: Current every day smoker How long have you smoked: 15 years Exposure to second hand smoke: Yes Alcohol Use: Socially Drug Use: none Patient Lives Alone: No Significant Family History: no pertinent family hx - Nursing Vital Signs Nursing Vital Signs: Initial Vital Signs Temperature 98.3 F 07/19/21 23:47 Pulse Rate 92 H 07/19/21 23:47 Respiratory Rate 18 07/19/21 23:47 Blood Pressure 150/91 07/19/21 23:47 O2 Sat by Pulse Oximetry 98 07/19/21 23:47 Pain Scale Pain Intensity 0 - Physical Exam General Appearance: no apparent distress, alert Eye Exam: PERRL/EOMI, eyes nml inspection Ears, Nose, Throat Exam: normal ENT inspection, TMs normal, pharynx normal, moist mucous membranes Neck Exam: normal inspection, non-tender, supple, full range of motion Respiratory Exam: normal breath sounds, lungs clear, airway intact, No respiratory distress Cardiovascular Exam: regular rate/rhythm, normal heart sounds, normal peripheral pulses Gastrointestinal/Abdomen Exam: soft, normal bowel sounds, No tenderness, No mass Back Exam: normal inspection, normal range of motion, No CVA tenderness, No vertebral tenderness Extremity Exam: normal inspection, normal range of motion, pelvis stable, other (The radial distal tip of the right ring finger has a 1 cm skin avulsion. The skin is nonviable and not amendable to suture repair. This will require local wound care) Neurologic Exam: alert, oriented x 3, cooperative, normal mood/affect, nml cerebellar function, nml station & gait, sensation nml, No motor deficits Skin Exam: normal color, warm, dry, No rash Lymphatic Exam: No adenopathy SpO2 Interpretation: normal SpO2: 98 O2 Delivery: Room Air - Course Nursing assessment & vital signs reviewed: Yes - Radiology Exams Chest X-ray Interpretation: Interpreted by me Ordered Tests: Active Orders 24 hr Category Date Time Status HAND (MINIMUM 3 VIEWS) Stat Exams 07/20/21 00:05 Taken Medication Summary Discontinued Medications Generic Name Dose Route Start Last Admin Trade Name Freq PRN Reason Stop Dose Admin Amoxicillin/Clavulanate Potassium 875 mg 07/20/21 00:31 11 00:32 Amox Tr/Potassium Clavulanate 875 Mg Tablet PO 07/20/21 00:32 875 mg STAT ONE Administration Amoxicillin/Clavulanate Potassium Confirm 07/20/21 00:31 Amox Tr/Potassium Clavulanate 875 Mg Tablet Administered 07/20/21 00:32 Dose 875 mg .ROUTE .STK-MED ONE Diphtheria/Tetanus/Acell Pertussis 0.5 ml 07/20/21 00:16 07/20/21 00:29 Tdap --Diph,Pertuss(Acell),Tet Vac/Pf 0.5 Ml Vial IM 07/20/21 00:17 0.5 ml .ONCE ONE Administration Diphtheria/Tetanus/Acell Pertussis Confirm 07/20/21 00:22 Tdap --Diph,Pertuss(Acell),Tet Vac/Pf 0.5 Ml Vial Administered 07/20/21 00:23 Dose 0.5 ml IM .STK-MED ONE - Progress Progress: improved Progress Note: Patient reassessed. Pain improved. Vital stable. X-ray shows a tuft fracture of the right ring finger. This is considered an open fracture. Patient received a dose of Augmentin in our ED. Tetanus updated. A prescription for Augmentin was forwarded to patient's pharmacy patient also received a prescription for Toradol for pain control. Patient received a referral for orthopedic clinic. I advised excision of the nonviable superficial soft tissue but patient declined. Patient prefers local wound care and states that "it will fall off eventually" plan of care discussed with patient. He agrees to follow- up with orthopedics tomorrow as scheduled. Patient voices no other complaints at this time. Will discharge at this time. Portions of this note were created with voice recognition technology. There may be grammatical, spelling, punctuation or sound alike errors 07/20/21 00:52 Wound was cleaned and dressed by nursing staff. 07/20/21 00:53 Counseled pt/family regarding: diagnosis, need for follow-up, rad results - Departure Departure Disposition: Home Clinical Impression: Skin avulsion, Finger fracture, right Condition: Stable Critical Care Time: No Referrals: MAKSIM OAKES [Primary Care Provider] - Follow up/PCP as directed Additional Instructions: Discharge/Care Plan KATY LAL KAMLA was seen on 07/20/21 in the Emergency Room. The patient was counseled regarding Diagnosis,Lab results, Imaging studies, need for follow up and when to return to the Emergency Room. Prescriptions given: Discharge Note I have spoken with the patient and/or caregivers. I have explained the patient's condition, diagnosis and treatment plan based on the information available to me at this time. I have answered the patient's and/or caregiver's questions and addressed any concerns. The patient and/or caregivers have as good understanding of the patient's diagnosis, condition and treatment plan as can be expected at this point. The vital signs have been stable. The patient's condition is stable and appropriate for discharge from the emergency department. The patient will pursue further outpatient evaluation with the primary care physician or other designated or consulting physician as outlined in the discharge instructions. The patient and/or caregivers are agreeable to this plan of care and follow-up instructions have been explained in detail. The patient and/or caregivers have received these instruction. The patient/and or caregivers are aware that any significant change in condition or worsening of symptoms should prompt an immediate return to this or the closest emergency department or call 911. Prescriptions: Amox Tr/Potass Clav. 875 mg [Augmentin 875-125 Tablet] 875 mg PO BID 7 Days #14 tablet Ketorolac Tromethamine [Toradol] 10 mg PO TID 5 Days #15 tablet Outpatient Orders: Ortho Referral Time Frame: 1 Day, Facility: [facility], Location: ORTHO CLINIC
[2021-07-20] MEDS: Adacel Vial IM ONE (00:29)
[2021-07-20] MEDS ORDERED: Augmentin 875-125 Tablet ONE (00:31)
[2021-07-20] MEDS: Augmentin 875-125 Tablet PO ONE (00:32)
[2021-07-20 00:51] VITALS: BP 124/65; PULSE 65
--- NOTE | 2021-07-20 08:50 | XRAY ---
Indication: Fourth finger pain following injury. Comparison: None 3 view right hand demonstrates tiny nondisplaced 4th tuft fracture with soft tissue swelling/laceration. No other bony, articular, or soft tissue abnormalities.
== END 2021-07-20 00:57 | disposition home or self-care (01) ==
LOC: ED 23:46
DX: S62.664B Nondisplaced fracture of distal phalanx of right ring finger, initial encounter for open fracture (principal); W20.8XXA Other cause of strike by thrown, projected or falling object, initial encounter; S61.214A Laceration without foreign body of right ring finger without damage to nail, initial encounter; Z72.0 Tobacco use
CPT/HCPCS: 73130; 90471; 90715; 99284; A9270-GY

== ENCOUNTER 2021-12-29 07:04 | Day surgery (SDC) | payer OTHER ==
[2021-12-29] MEDS ORDERED: Depo-Medrol 40 MG/ML IM ONE (07:05)
[2021-12-29] MEDS ORDERED: BUPIVACAINE 0.5% VIAL IJ ONE (07:05)
[2021-12-29] MEDS ORDERED: Xylocaine 1% Vial 30 ML PF IJ ONE (07:05)
--- NOTE | 2021-12-29 11:00 | XRAY ---
Indication: Left shoulder and subacromial bursal injections. Intraoperative fluoroscopy provided for 45 seconds. 3 digital spot images submitted for interpretation demonstrates needle tip projecting over the left glenohumeral joint superiorly. Second needle tip subacromial. Small amount of contrast injected for both needle tip placement. Correlate with intraoperative findings/report.
--- NOTE | 2021-12-29 12:46 | XRAY ---
45 seconds of fluoroscopy was used in surgery for a left shoulder intra-articular and subacromial bursa injections.
== END 2021-12-29 09:15 | disposition home or self-care (01) ==
LOC: SDC-PAIN 07:04
PROVIDERS: ATTEND Psychiatry & Neurology Pain Medicine
DX: M19.012 Primary osteoarthritis, left shoulder (principal); M75.52 Bursitis of left shoulder; Z79.899 Other long term (current) drug therapy
CPT/HCPCS: 20610; 73030; 77002; J1030; J2001; Q9966